=== PATIENT | female | born 1980 | race Caucasian/White ===

== ENCOUNTER → 2017-08-06 | Outpatient (CLI) | payer OTHER, MEDICAID ==
[~2017-08-06] MED LIST: LIDOCAINE 1% MDV 20ML VIAL As Ordered
== END ==
LOC: M RADPRO 08:47
DX: D44.0 Neoplasm of uncertain behavior of thyroid gland (principal); Z79.899 Other long term (current) drug therapy; Z88.8 Allergy status to other drugs, medicaments and biological substances; F17.210 Nicotine dependence, cigarettes, uncomplicated; J31.0 Chronic rhinitis; F41.9 Anxiety disorder, unspecified; G43.909 Migraine, unspecified, not intractable, without status migrainosus; Z87.442 Personal history of urinary calculi; Z97.5 Presence of (intrauterine) contraceptive device
CPT/HCPCS: 10022

== ENCOUNTER → 2018-02-22 | Outpatient (CLI) | payer OTHER | LOC: M RAD 14:17 | DX: E04.1 Nontoxic single thyroid nodule (principal) | CPT/HCPCS: 76536 ==

== ENCOUNTER 2018-11-10 08:29 | Emergency (ER) | payer OTHER ==
[~2018-11-10] VITALS: Ht 172.7 cm; Wt 113.8 kg
[~2018-11-10 08:29] MED LIST changes: +FLON1SPR; -LIDOCAINE 1% MDV 20ML VIAL As Ordered; +PROP20TA72 PO
[2018-11-10] MEDS ORDERED: NAPROXEN 250 MG TAB PO ONE (09:30)
[2018-11-10] MEDS ORDERED: AUGM875T28 PO (09:30)
[2018-11-10] MEDS ORDERED: ERYT1OIN26 OS (09:30)
[2018-11-10] MEDS ORDERED: NAPR-837 PO (09:30)
[2018-11-10] MEDS ORDERED: ERYTHROMYCIN OPHTH OINT OS ONE (09:30)
[2018-11-10] MEDS ORDERED: AUGMENTIN 875 MG TAB PO ONE (09:30)
[2018-11-10 09:44] VITALS: BP 133/87
== END 2018-11-10 09:55 | disposition home or self-care (01) ==
LOC: M ED 08:29
DX: H00.025 Hordeolum internum left lower eyelid (principal); L08.9 Local infection of the skin and subcutaneous tissue, unspecified; Z79.899 Other long term (current) drug therapy; Z88.8 Allergy status to other drugs, medicaments and biological substances; F17.210 Nicotine dependence, cigarettes, uncomplicated

== ENCOUNTER → 2018-12-30 | Outpatient (CLI) | payer OTHER ==
[~2018-12-30] MED LIST changes: +AUGM875T28 PO; +ERYT1OIN26 OS; +NAPR-837 PO
--- NOTE | 2018-12-30 16:33 | REP ---
Thyroid sonography: History: Thyroid nodule. Comparison studies are from February 22, 2018 and June 22, 2017. Findings: The right thyroid lobe dimensions today are 4.4 x 2.0 x 2.1 cm. Left lobe of the thyroid measures 3.9 x 0.9 x 0.8 cm. The isthmus is 0.4 cm thick. There is a 0.6 cm hypoechoic nodule in the lower pole of the left lower side of the gland. There is a larger nodule in the lower pole on the right. This measures 2.9 x 1.8 x 1.6 cm and is felt to be unchanged from June 22, 2017. The left nodule is unchanged as well. Impression: There is a nodule in each lobe of the thyroid unchanged from prior study. There are calcifications again noted in the larger nodule in the lower pole on the right. Electronically Signed by Bowen Garcia MD 12/30/2018 05:10 P
== END ==
LOC: M RAD 13:33
PROVIDERS: ATTEND Otolaryngology
DX: E04.9 Nontoxic goiter, unspecified (principal)